=== PATIENT | male | born 1950 | race Caucasian/White ===

== ENCOUNTER → 2024-10-27 12:15 | Outpatient (REF) | payer MEDICARE, OTHER, SELFPAY | LOC: RCS 12:15 | PROVIDERS: ATTENDING PHYSICIAN Internal Medicine Cardiovascular Disease; FAMILY PHYSICIAN Family Medicine | DX: I10 Essential (primary) hypertension (principal); R01.1 Cardiac murmur, unspecified | CPT/HCPCS: 93306 ==